=== PATIENT | female | born 1930 | race African-American/Black ===

== ENCOUNTER 2017-09-23 15:05 | Emergency (ER) | payer OTHER ==
[~2017-09-23] VITALS: Ht 165.1 cm; Wt 64.0 kg
[2017-09-23] MEDS ORDERED: ATOR40TA28 PO (15:28)
[2017-09-23] MEDS ORDERED: PHENY100 PO (15:28)
[2017-09-23] MEDS ORDERED: PROZ10 PO (15:28)
[2017-09-23] MEDS ORDERED: OXYC-530 PO (15:28)
[2017-09-23] MEDS ORDERED: MELO-107 PO (15:28)
[2017-09-23] MEDS ORDERED: LEVO88TA4 PO (15:28)
[2017-09-23] MEDS ORDERED: LORA-192 PO (15:28)
[2017-09-23] MEDS ORDERED: CEPH250 PO (15:28)
[2017-09-23] MEDS ORDERED: ALEN70TA48 PO (15:28)
[2017-09-23] MEDS ORDERED: OSCD250 PO (15:28)
[2017-09-23] MEDS ORDERED: AMLO-511 PO (15:28)
[2017-09-23] MEDS ORDERED: VITAD400 PO (15:28)
[2017-09-23] MEDS ORDERED: FURO20 PO (15:28)
[2017-09-23] MEDS ORDERED: KDUR10 PO (15:28)
[2017-09-23 17:06] LABS: ANION GAP 9 mmol/L (8-16); CALCIUM, TOTAL 8.5 mg/dL (8.8-10.5); CARBON DIOXIDE 27 mmol/L (22-29); CHLORIDE 93 mmol/L (98-107); CREATININE 0.94 mg/dL (0.60-1.30); GLOMERULAR FILTR. RATE CALC > 60 mL/min (>60); POTASSIUM 3.8 mmol/L (3.5-5.1); SODIUM SERUM 129 mmol/L (136-145); UREA NITROGEN, BLOOD 8 mg/dL (7-18)
[2017-09-23 17:13] LABS: ALANINE AMINOTRANSFERASE 29 U/L (12-78); ALBUMIN 3.8 g/dL (3.4-5.0); ASPARTATE AMINOTRANSFERASE 31 U/L (15-37); BILIRUBIN,TOTAL 0.2 mg/dL (0.1-1.0); TOTAL PROTEIN, SERUM 7.4 g/dL (6.4-8.2)
[2017-09-23] MEDS ORDERED: ONDANSETRON HCL 4 MG/2 ML VIAL IM ONE (17:45)
[2017-09-23] MEDS ORDERED: MORPHINE SULFATE 4 MG/ML SYRINGE IM ONE (17:45)
[2017-09-23 17:49] LABS: BASOPHILS # (AUTO) 0.03 K/uL (0.00-0.20); BASOPHILS % (AUTO) 0.5 % (0.0-2.0); EOSINOPHILS % (AUTO) 0.03 % (1.0-6.0); HEMOGLOBIN 10.3 g/dL (12.0-16.0); LYMPHOCYTES % (AUTO) 33.8 % (22.0-44.0); MEAN CORPUSCULAR HEMOGLOBIN 28.8 pg (26.0-34.0); MEAN CORPUSCULAR HGB CONC 33.2 G/dL (31.0-37.0); MEAN CORPUSCULAR VOLUME 87 fL (80-100); MONOCYTES # (AUTO) 0.6 K/uL (0.1-1.0); MONOCYTES % (AUTO) 9.9 % (2.0-9.0); NEUTROPHILS # (AUTO) 3.2 K/uL (1.8-7.7); NEUTROPHILS % (AUTO) 55.8 % (40.0-70.0); PLATELET COUNT (AUTO) 294 K/uL (150-450); RED BLOOD CELL COUNT(AUTO) 3.57 MIL/uL (4.00-5.20); RED CELL DISTRIBUTION WIDTH 13.9 % (11.5-14.5); WHITE BLOOD COUNT (AUTO) 5.8 K/uL (4.5-11.0)
[2017-09-23 18:33] VITALS: BP 141/73
== END 2017-09-23 18:37 | disposition home or self-care (01) ==
LOC: EMS 15:11
DX: M13.861 Other specified arthritis, right knee (principal); M79.89 Other specified soft tissue disorders; E78.00 Pure hypercholesterolemia, unspecified; E03.9 Hypothyroidism, unspecified; I10 Essential (primary) hypertension
CPT/HCPCS: 36415; 80053; 85025; 86140; 96372; 99284; J2270; J2405